=== PATIENT | female | born 1960 | race Caucasian/White ===

== ENCOUNTER 2019-02-01 15:57 | Emergency (ER) | payer MEDICAID ==
[~2019-02-01] VITALS: Ht 177.8 cm; Wt 79.4 kg
[~2019-02-01 15:57] MED LIST: ALDACTONE25 MG PO; CARVEDILOL3.125 MG PO; CELEBREX 200 M200 M1 PO; CIPROFLOXACIN500 M1 PO; COLACE100 MG PO; CRESTOR20 MG PO; CYMBALTA30 MG PO; DIAZEPAM 10 MG10 M1 PO; DILAUDID1 MG/1 ML; DOXYCYCLINE 10100 MG PO; EFFIENT10 MG PO; FAMOTIDINE20 MG PO; FUROSEMIDE 40 M40 M1 PO; IBUPROFEN 200200 M1 PO; IBUPROFEN 800800 M1 PO; K-DUR 20 MEQ T20 MEQ PO; LEXAPRO 10 MG T10 M1 PO; LIORESAL 10 MG10 MG PO; NAPROSYN500 MG PO; NEURONTIN600 MG PO; NEURONTIN800 MG PO; NICOTINE TRANSD21 M1 TD; NORCO 5-325 TA1 EACH PO; OXYCODONE HCL30 MG PO; OXYCONTIN10 M1 PO; OXYCONTIN20 M1 PO; PENICILLIN V P500 MG PO; PERCOCET PO; PHENERGAN 25 MG25 MG PO; PREDNISONE 20 M20 M1 PO; PRINIVIL20 MG PO; PROVENTIL HFA6.7 G1 INH; XANAX 0.5 MG0.5 MG PO; ZANAFLEX4 MG PO; ZOFRAN ODT4 MG PO
[2019-02-01 17:09] LABS: ABSOLUTE EOSINOPHILS 0.2 thou/uL (0.0-0.7); ABSOLUTE MONOCYTES 0.4 thou/uL (0.0-1.2); ABSOLUTE NEUTROPHILS 1.9 thou/uL (1.6-8.1); BASOPHILS 0.7 %; EOSINOPHILS 3.9 %; HEMOGLOBIN 15.4 gm/dL (12.0-15.0); LYMPHOCYTES 44.4 %; MCH 34.3 pg (26.0-34.0); MCHC 33.4 g/dL (28.0-37.0); MCV 102.6 fL (80.0-100.0); MPV 10.1 fl. (7.2-11.1); NUCLEATED RBCS 0 /100WBC; PLATELET COUNT* 119 thou/uL (150-400); RBC 4.49 mil/uL (4.20-5.00); RDW-CV 15.3 % (10.5-14.5); WBC 4.4 thou/uL (4.0-11.0)
[2019-02-01 17:27] LABS: ALBUMIN 3.2 g/dL (3.4-5.0); ALKALINE PHOSPHATASE 81 U/L (46-116); ANION GAP 7 mmol/L (7-16); BUN 15 mg/dL (7-18); CALCIUM 8.8 mg/dL (8.5-10.1); CHLORIDE 103 mmol/L (98-107); CO2 32 mmol/L (21-32); CREATININE 0.9 mg/dL (0.6-1.3); GLUCOSE 105 mg/dL (70-99); POTASSIUM 3.7 mmol/L (3.5-5.1); SGOT 25 U/L (15-37); SGPT 17 U/L (30-65); SODIUM 142 mmol/L (136-145); TOTAL BILIRUBIN 0.3 mg/dL (<0.1-1.0); TOTAL PROTEIN 6.6 g/dL (6.4-8.2); TROPONIN-I LEVEL <0.06 ng/mL (<0.06)
[2019-02-01 19:21] LABS: URINE BILIRUBIN NEGATIVE (Negative); URINE BLOOD NEGATIVE (Negative); URINE CLARITY CLEAR; URINE COLOR YELLOW; URINE GLUCOSE-RANDOM NEGATIVE (Negative); URINE KETONES NEGATIVE (Negative); URINE LEUKOCYTES-REFLEX NEGATIVE (Negative); URINE NITRITE-REFLEX NEGATIVE (Negative); URINE PROTEIN NEGATIVE (Negative); URINE UROBILINOGEN 0.2 E.U./dl (0.2-1.0)
[2019-02-01] MEDS ORDERED: NORCO 5-325 TA1 EACH PO (20:21)
[2019-02-01] MEDS ORDERED: NABUMETONE 750750 M1 PO (20:21)
[2019-02-01 21:03] VITALS: BP 201/93
--- NOTE | 2019-02-02 10:47 | EKG ---
[place] [address] ELECTROCARDIOGRAM REPORT Name: FABIAN POTTER Room: [facility]#: [id number] Admission: 02/01/19 Attend Phys: Discharge: 02/01/19 Date of : 58 Report #: [id number] THIS REPORT FOR: //name// [facility] ED Test Date: 2019-02-01 Test Time: 16:11:03 Pat Name: FABIAN SMITH Department: Room: Gender: F Preservationist: : 1960 Requested By: María Burnett Order Number: [id number] MD: Manoj Harirs Measurements Intervals [place] Rate: 64 P: -28 WI: 187 QRS: 32 QRSD: 88 T: 57 QT: 444 QTc: 458 Interpretive Statements Sinus rhythm Baseline wander in lead(s) V4 Compared to ECG 01/25/2017 15:53:58 No significant changes Electronically Signed On 02-02-2019 10:47:04 CDT by Manoj Harris [email or web address] <ELECTRONICALLY SIGNED> By: Manoj Harris MD, [facility] 02/02/19 1047 161 161 Manoj Harris MD, FACC /EPI
== END 2019-02-01 21:00 | disposition home or self-care (01) ==
LOC: M.ERS 15:57
PROVIDERS: Nurse Practitioner Family
DX: S16.1XXA Strain of muscle, fascia and tendon at neck level, initial encounter (principal); S29.012A Strain of muscle and tendon of back wall of thorax, initial encounter; S09.8XXA Other specified injuries of head, initial encounter; J98.2 Interstitial emphysema; G89.29 Other chronic pain; M54.5 Low back pain; L40.9 Psoriasis, unspecified; I10 Essential (primary) hypertension; F41.9 Anxiety disorder, unspecified; F31.9 Bipolar disorder, unspecified; Z95.5 Presence of coronary angioplasty implant and graft; Z90.710 Acquired absence of both cervix and uterus; W18.39XA Other fall on same level, initial encounter; Y93.89 Activity, other specified; Y92.89 Other specified places as the place of occurrence of the external cause; Y99.8 Other external cause status

== ENCOUNTER 2019-03-12 02:10 | Inpatient (IN) | payer MEDICAID ==
[~2019-03-12] VITALS: Ht 172.7 cm; Wt 97.1 kg
[2019-03-12] VITALS (13 sets, daily range): BP systolic 115–159; BP diastolic 53–73
[~2019-03-12 02:10] MED LIST changes: +NABUMETONE 750750 M1 PO
[2019-03-12 03:01] LABS: BE 11.3 mmol/L (-2 to +3); PO2 69.9 mmHg (75.0-100.0)
[2019-03-12 03:03] LABS: PCO2 51.5 mmHg (35.0-45.0)
[2019-03-12 04:06] LABS: ABSOLUTE LYMPHOCYTES 1.9 thou/uL (0.8-5.3); ABSOLUTE MONOCYTES 0.7 thou/uL (0.0-1.2); ABSOLUTE NEUTROPHILS 6.4 thou/uL (1.6-8.1); BASOPHILS 0.4 %; EOSINOPHILS 0.1 %; HEMATOCRIT 57.6 % (37.0-47.0); HEMOGLOBIN 19.4 gm/dL (12.0-15.0); LYMPHOCYTES 21.1 %; MCH 34.2 pg (26.0-34.0); MCHC 33.6 g/dL (28.0-37.0); MCV 101.8 fL (80.0-100.0); MONOCYTES 8.1 %; MPV 10.7 fl. (7.2-11.1); NUCLEATED RBCS 0 /100WBC; PLATELET COUNT* 142 thou/uL (150-400); POLYS 70.3 %; RBC 5.66 mil/uL (4.20-5.00); WBC 9.1 thou/uL (4.0-11.0)
[2019-03-12 04:09] LABS: CALCIUM 9.6 mg/dL (8.5-10.1); CREATININE 2.1 mg/dL (0.6-1.3)
[2019-03-12 04:13] LABS: URINE BLOOD TRACE (Negative); URINE CLARITY CLEAR; URINE COLOR YELLOW; URINE GLUCOSE-RANDOM NEGATIVE (Negative); URINE KETONES TRACE (Negative); URINE LEUKOCYTES-REFLEX NEGATIVE (Negative); URINE NITRITE-REFLEX NEGATIVE (Negative); URINE PROTEIN TRACE (Negative); URINE SPECIFIC GRAVITY 1.015 (1.005-1.030); URINE UROBILINOGEN 0.2 E.U./dl (0.2-1.0)
[2019-03-12 04:14] LABS: ICTOTEST (BILI CONFIRMATORY) Negative (Negative); URINE BILIRUBIN 1+ (Negative)
[2019-03-12 04:18] LABS: ALBUMIN 3.9 g/dL (3.4-5.0); MAGNESIUM 1.6 mg/dL (1.8-2.4); TOTAL PROTEIN 8.3 g/dL (6.4-8.2); TROPONIN-I LEVEL 0.14 ng/mL (<0.06)
[2019-03-12 04:21] LABS: AMP/METHAMP Negative (Negative); BARBITURATES Negative (Negative); BENZODIAZEPINES POSITIVE (Negative); COCAINE Negative (Negative); METHADONE Negative (Negative); OPIATES POSITIVE (Negative); PCP Negative (Negative); THC Negative (Negative)
[2019-03-12 04:22] LABS: PROTIME 65.2 Seconds (9.20-11.50)
[2019-03-12 04:23] LABS: POTASSIUM 2.4 mmol/L (3.5-5.1)
[2019-03-12 04:31] LABS: INR 6.5
[2019-03-12 05:55] LABS: APTT 30.3 Seconds (25.0-31.3); PROTIME 13.7 Seconds (9.20-11.50)
[2019-03-12 05:56] LABS: INR 1.3
[2019-03-12 06:27] LABS: CREATININE 2.1 mg/dL (0.6-1.3)
--- NOTE | 2019-03-12 10:50 | EKG ---
[place] [address] ELECTROCARDIOGRAM REPORT Name: FABIAN POTTER Room: [address] ADM IN .R.#: [id number] Admission: 03/12/19 Attend Phys: Luis Capps, Discharge: Date of : 58 Report #: [id number] THIS REPORT FOR: //name// [facility] ED Test Date: 2019-03-12 Test Time: 02:18:26 Pat Name: FABIAN SMITH Department: Room: [facility] Gender: F Meter Technician: BROOKS : 1960 Requested By: Nancy Kim Order Number: [id number] MD: Manoj Harris Measurements Intervals [place] Rate: 79 P: 0 IL: 60 QRS: 69 QRSD: 98 T: 50 QT: 541 QTc: 621 Interpretive Statements Sinus rhythm Short IL interval Minimal ST depression, lateral leads Prolonged QT interval Baseline wander in lead(s) V4 Compared to ECG 02/01/2019 16:11:03 Short IL interval now present ST (T wave) deviation now present Prolonged QT interval now present Electronically Signed On 03-12-2019 10:50:07 CDT by Manoj Harris [email or web address] <ELECTRONICALLY SIGNED> By: Manoj Harris MD, [facility] 03/12/19 1050 7 7 Manoj Harris MD, [facility] /EPI
[2019-03-12 11:21] LABS: BE 3.6 mmol/L (-2 to +3); PCO2 38.9 mmHg (35.0-45.0); PO2 87.3 mmHg (75.0-100.0); pH 7.466 (7.340-7.450)
[2019-03-12 11:22] LABS: MAGNESIUM 1.6 mg/dL (1.8-2.4)
--- NOTE | 2019-03-12 17:18 | 2DMMODE ---
[place] [address] 2 D/M-MODE ECHOCARDIOGRAM Name: FABIAN POTTER Room: [address] IN [facility]#: [id number] Admission: 03/12/19 Attend Phys: Luis Capellan Discharge: Date of : 58 Date of Service: 03/12/19 1718 Report #: [id number] THIS REPORT FOR: //name// APPROVED REPORT Study performed: 03/12/2019 15:05:50 EXAM: Comprehensive 2D, Doppler, and color-flow Echocardiogram Patient Location: In-Patient Room #: 002 Status: routine BSA: 2.05 HR: 54 bpm BP: 131/68 mmHg Rhythm: NSR Other Information Study Quality: Good Indications CAD Respiratory failure 2D Dimensions IVSd: 15.16 (7-11mm) LVOT Diam: 19.83 (18-24mm) LVDd: 39.64 mm PWd: 12.13 (7-11mm) Ascending Ao: 30.70 (22-36mm) LVDs: 22.72 (25-40mm) Aortic Root: 31.52 mm Volumes Left Atrial Volume (Systole) LA ESV Index: 17.90 mL/m2 Aortic Valve AoV Peak Tim.: 1.42 m/s AO Peak Gr.: 8.11 mmHg LVOT Max P.46 mmHg AO Mean Gr.: 5.19 mmHg LVOT Mean P.33 mmHg LVOT Max V: 1.54 m/s AO V2 VTI: 24.41 cm LVOT Mean V: 0.94 m/s SUZAN (VTI): 3.99 cm2 LVOT V1 VTI: 31.55 cm Mitral Valve E/A Ratio: 0.90 MV Decel. Time: 229.99 [place] [address] 2 D/M-MODE ECHOCARDIOGRAM Name: FABIAN POTTER Room: [address]#: [id number] Admission: 03/12/19 Attend Phys: Luis Capellan Discharge: Date of : 58 Date of Service: 03/12/19 1718 Report #: [id number] MV E Max Tim.: 0.61 m/s MV PHT: 66.70 ms MVA (PHT): 3.30 cm2 TDI E/Lateral E': 6.78 E/Medial E': 8.71 Medial E' Tim.: 0.07 m/s Lateral E' Tim.: 0.09 m/s Pulmonary Valve PV Peak Tim.: 0.92 m/s PV Peak Gr.: 3.42 mmHg Left Ventricle The left ventricle is normal size. There is normal LV segmental wall motion. Mild concentric left ventricular hypertrophy. Left ventricular systolic function is normal. The left ventricular ejection fraction is within the normal range. LVEF is 65%. The left ventricular diastolic function is normal. Right Ventricle The right ventricle is normal size. The right ventricular systolic function is normal. Atria The left atrium size is normal. The right atrium size is normal. Aortic Valve The aortic valve is normal in structure. No aortic regurgitation is present. There is no aortic valvular stenosis. Mitral Valve The mitral valve is normal in structure. There is no mitral valve regurgitation noted. No evidence of mitral valve stenosis. Tricuspid Valve The tricuspid valve is normal in structure. Trace tricuspid regurgitation. Pulmonic Valve Pulmonic valve is not well visualized. There is no pulmonic valvular regurgitation. Great Vessels The aortic root is normal in size. IVC is normal in size and collapses >50% [place] [address] 2 D/M-MODE ECHOCARDIOGRAM Name: JESSY SMITHFABIAN Lara Room: [address]#: [id number] Admission: 03/12/19 Attend Phys: Luis Capellan Discharge: Date of : 58 Date of Service: 03/12/19 1718 Report #: [id number] Pericardium There is no pericardial effusion. <Conclusion> Mild concentric left ventricular hypertrophy. LVEF is 65%. <ELECTRONICALLY SIGNED> By: Manoj Harris MD, [facility] 03/12/191717 17 17 Manoj Harris MD, [facility] /INF
[2019-03-12 23:05] LABS: GLYCOHEMOGLOBIN (HGB A1C) 5.8 % (4.8-5.6)
[2019-03-13] VITALS (24 sets, daily range): BP systolic 112–244; BP diastolic 55–121
[2019-03-13 04:28] LABS: HEMATOCRIT 49.8 % (37.0-47.0); MCH 33.4 pg (26.0-34.0); MCHC 32.9 g/dL (28.0-37.0); MCV 101.5 fL (80.0-100.0); NUCLEATED RBCS 0 /100WBC; PLATELET COUNT* 139 thou/uL (150-400); RDW-CV 15.6 % (10.5-14.5); WBC 14.4 thou/uL (4.0-11.0)
[2019-03-13 04:56] LABS: HEMOGLOBIN 16.4 gm/dL (12.0-15.0)
[2019-03-13 05:02] LABS: ALBUMIN 3.1 g/dL (3.4-5.0); CALCIUM 9.1 mg/dL (8.5-10.1); CREATININE 1.2 mg/dL (0.6-1.3); TOTAL BILIRUBIN 0.9 mg/dL (<0.1-1.0); TOTAL PROTEIN 6.7 g/dL (6.4-8.2)
[2019-03-13 06:16] LABS: BE 7.5 mmol/L (-2 to +3); PCO2 37.1 mmHg (35.0-45.0); pH 7.532 (7.340-7.450)
[2019-03-13 06:18] LABS: PO2 128.9 mmHg (75.0-100.0)
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
[2019-03-13 07:59] LABS: ABSOLUTE LYMPHOCYTES 1.3 thou/uL (0.8-5.3); ABSOLUTE MONOCYTES 0.4 thou/uL (0.0-1.2); ABSOLUTE NEUTROPHILS 12.7 thou/uL (1.6-8.1); ATYPICAL LYMPHS 1 %; PLATELET ESTIMATE DECREASED
[2019-03-13 08:00] LABS: LARGE PLATELETS OCCASIONAL; MACROCYTES 1+
[2019-03-13 10:39] LABS: BE 7.4 mmol/L (-2 to +3); PO2 72.8 mmHg (75.0-100.0); pH 7.547 (7.340-7.450)
[2019-03-14] VITALS (76 sets, daily range): BP systolic 103–235; BP diastolic 59–121
[2019-03-14 05:30] LABS: ABSOLUTE LYMPHOCYTES 0.7 thou/uL (0.8-5.3); ABSOLUTE MONOCYTES 1.5 thou/uL (0.0-1.2); ABSOLUTE NEUTROPHILS 16.5 thou/uL (1.6-8.1); BASOPHILS 0.2 %; HEMATOCRIT 53.6 % (37.0-47.0); HEMOGLOBIN 17.7 gm/dL (12.0-15.0); LYMPHOCYTES 3.7 %; MCH 33.6 pg (26.0-34.0); MCHC 33.1 g/dL (28.0-37.0); MCV 101.8 fL (80.0-100.0); MONOCYTES 8.1 %; MPV 11.2 fl. (7.2-11.1); NUCLEATED RBCS 0 /100WBC; PLATELET COUNT* 145 thou/uL (150-400); RBC 5.26 mil/uL (4.20-5.00); RDW-CV 15.5 % (10.5-14.5); WBC 18.7 thou/uL (4.0-11.0)
[2019-03-14 05:58] LABS: CALCIUM 9.5 mg/dL (8.5-10.1); CREATININE 0.9 mg/dL (0.6-1.3)
[2019-03-14 06:05] LABS: POTASSIUM 3.4 mmol/L (3.5-5.1)
[2019-03-15] VITALS (12 sets, daily range): BP systolic 168–206; BP diastolic 74–95
[2019-03-15 14:32] LABS: ABSOLUTE LYMPHOCYTES 0.7 thou/uL (0.8-5.3); ABSOLUTE MONOCYTES 0.6 thou/uL (0.0-1.2); BASOPHILS 0.1 %; EOSINOPHILS 0.1 %; HEMATOCRIT 52.5 % (37.0-47.0); HEMOGLOBIN 17.2 gm/dL (12.0-15.0); LYMPHOCYTES 4.8 %; MCH 34.1 pg (26.0-34.0); MCHC 32.8 g/dL (28.0-37.0); MCV 103.9 fL (80.0-100.0); MPV 10.8 fl. (7.2-11.1); NUCLEATED RBCS 0 /100WBC; PLATELET COUNT* 118 thou/uL (150-400); RBC 5.06 mil/uL (4.20-5.00); RDW-CV 15.3 % (10.5-14.5); WBC 14.2 thou/uL (4.0-11.0)
[2019-03-15 15:24] LABS: CALCIUM 8.9 mg/dL (8.5-10.1); CREATININE 0.8 mg/dL (0.6-1.3); MAGNESIUM 1.6 mg/dL (1.8-2.4); PHOSPHORUS* 2.3 mg/dL (2.5-4.9)
[2019-03-16 04:00] VITALS: BP 117/65
[2019-03-16 08:00] VITALS: BP 180/74
[2019-03-16 11:30] VITALS: BP 175/76
[2019-03-16 16:01] VITALS: BP 160/80
[2019-03-16 21:35] VITALS: BP 185/81
[2019-03-17 08:30] VITALS: BP 167/71
[2019-03-17 10:30] VITALS: BP 158/67
[2019-03-17] MEDS ORDERED: PREDNISONE 10 M10 MG PO (12:56)
[2019-03-17] MEDS ORDERED: MAXZIDE-25 MG1 EACH PO (12:57)
[2019-03-17] MEDS ORDERED: LISINOPRIL40 MG PO (12:58)
[2019-03-17] MEDS ORDERED: HYDROCODON-ACE1 EAC7 PO (13:03)
[2019-03-17 13:06] VITALS: BP 167/71
[2019-03-17 13:54] VITALS: BP 167/71
== END 2019-03-17 21:30 | disposition home or self-care (01) | DRG 208 ==
LOC: M.ERS 02:10 → M.TBA-ER 04:09 → M.ICU 04:51 → M.TBA-ER 04:51 → M.ICU 04:55 → M.TBA-ER 04:55 → M.ICU 05:59 → M.ORTHSURG 03-15 15:21
PROVIDERS: Internal Medicine; Internal Medicine Pulmonary Disease; Personal Emergency Response Attendant; ADMIT Family Medicine
PROC: 06HM33Z Insertion of Infusion Device into Right Femoral Vein, Percutaneous Approach (ICD-10-PCS; principal; 2019-03-12)
PROC: 5A1935Z Respiratory Ventilation, Less than 24 Consecutive Hours (ICD-10-PCS; 2019-03-12)
PROC: 0BH17EZ Insertion of Endotracheal Airway into Trachea, Via Natural or Artificial Opening (ICD-10-PCS; 2019-03-12)
DX: J96.02 Acute respiratory failure with hypercapnia (principal); E11.10 Type 2 diabetes mellitus with ketoacidosis without coma; E87.2 Acidosis; N17.9 Acute kidney failure, unspecified; G89.29 Other chronic pain; L40.9 Psoriasis, unspecified; I10 Essential (primary) hypertension; F31.9 Bipolar disorder, unspecified; F41.9 Anxiety disorder, unspecified; F17.210 Nicotine dependence, cigarettes, uncomplicated; F11.90 Opioid use, unspecified, uncomplicated; I25.10 Atherosclerotic heart disease of native coronary artery without angina pectoris; E87.6 Hypokalemia; E78.5 Hyperlipidemia, unspecified; E66.01 Morbid (severe) obesity due to excess calories; J44.9 Chronic obstructive pulmonary disease, unspecified; Z91.81 History of falling; Z91.041 Radiographic dye allergy status; Z91.040 Latex allergy status; Z79.899 Other long term (current) drug therapy; Z90.710 Acquired absence of both cervix and uterus; Z98.42 Cataract extraction status, left eye; Z98.41 Cataract extraction status, right eye; I25.2 Old myocardial infarction; Z95.5 Presence of coronary angioplasty implant and graft; Z82.49 Family history of ischemic heart disease and other diseases of the circulatory system; Z83.3 Family history of diabetes mellitus; Z84.1 Family history of disorders of kidney and ureter; Z68.32 Body mass index [BMI] 32.0-32.9, adult

== ENCOUNTER 2019-03-22 21:11 | Inpatient (IN) | payer MEDICAID ==
[~2019-03-22] VITALS: Ht 177.8 cm; Wt 93.9 kg
[~2019-03-22 21:11] MED LIST changes: +HYDROCODON-ACE1 EAC7 PO; +LISINOPRIL40 MG PO; +MAXZIDE-25 MG1 EACH PO; +PREDNISONE 10 M10 MG PO
[2019-03-22 21:12] VITALS: BP 103/54
[2019-03-22 21:56] LABS: HEMATOCRIT 46.1 % (37.0-47.0); HEMOGLOBIN 15.6 gm/dL (12.0-15.0); MCH 34.3 pg (26.0-34.0); MCHC 33.8 g/dL (28.0-37.0); MCV 101.6 fL (80.0-100.0); MPV 11.5 fl. (7.2-11.1); NUCLEATED RBCS 0 /100WBC; PLATELET COUNT* 102 thou/uL (150-400); RBC 4.54 mil/uL (4.20-5.00); RDW-CV 14.6 % (10.5-14.5); WBC 15.5 thou/uL (4.0-11.0)
[2019-03-22 22:06] LABS: ANION GAP 7 mmol/L (7-16); BUN 42 mg/dL (7-18); CALCIUM 9.2 mg/dL (8.5-10.1); CHLORIDE 92 mmol/L (98-107); CO2 33 mmol/L (21-32); CREATININE 2.3 mg/dL (0.6-1.3); GLUCOSE 119 mg/dL (70-99); POTASSIUM 3.4 mmol/L (3.5-5.1); SODIUM 132 mmol/L (136-145)
[2019-03-22 22:18] LABS: ABSOLUTE LYMPHOCYTES 1.6 thou/uL (0.8-5.3); ABSOLUTE MONOCYTES 0.6 thou/uL (0.0-1.2); ABSOLUTE NEUTROPHILS 13.3 thou/uL (1.6-8.1)
[2019-03-22 22:19] LABS: ALBUMIN 2.8 g/dL (3.4-5.0); ALKALINE PHOSPHATASE 85 U/L (46-116); SGOT 43 U/L (15-37); SGPT 37 U/L (30-65); TOTAL BILIRUBIN 0.9 mg/dL (<0.1-1.0); TOTAL PROTEIN 6.8 g/dL (6.4-8.2); TROPONIN-I LEVEL <0.06 ng/mL (<0.06)
[2019-03-22 22:20] LABS: LARGE PLATELETS OCCASIONAL; PLATELET ESTIMATE DECREASED
[2019-03-23 00:20] LABS: URINE BLOOD NEGATIVE (Negative); URINE CLARITY CLEAR; URINE COLOR YELLOW; URINE GLUCOSE-RANDOM NEGATIVE (Negative); URINE KETONES NEGATIVE (Negative); URINE LEUKOCYTES-REFLEX NEGATIVE (Negative); URINE NITRITE-REFLEX NEGATIVE (Negative); URINE PROTEIN NEGATIVE (Negative); URINE SPECIFIC GRAVITY 1.025 (1.005-1.030); URINE UROBILINOGEN 0.2 E.U./dl (0.2-1.0)
[2019-03-23 00:22] LABS: ICTOTEST (BILI CONFIRMATORY) Negative (Negative); URINE BILIRUBIN 1+ (Negative)
[2019-03-23 00:27] LABS: AMP/METHAMP Negative (Negative); BARBITURATES Negative (Negative); BENZODIAZEPINES Negative (Negative); COCAINE Negative (Negative); METHADONE Negative (Negative); OPIATES POSITIVE (Negative); PCP Negative (Negative); THC Negative (Negative)
[2019-03-23 04:47] VITALS: BP 135/62
--- NOTE | 2019-03-23 04:52 | NUR ---
PT IS RESTING QUIETLY. NO ACUTE DISTRESS NOTED AT THIS TIME. MONTIORS INTACT WITH ALARMS SET. NUGENT INTACT AND PATENT DRAINING DK NATALIO URINE TO BEDSIDE BAG. NO ACUTE CHANGES. WILL CONTINUE TO MONITOR
--- NOTE | 2019-03-23 08:47 | NUR ---
PT GIVEN A BREAKFAST TRAY.
--- NOTE | 2019-03-23 09:30 | NUR ---
PT HAS REDDNESS TO HER BUTTOCKS. WHEN ASKED, PT STATED THAT "IT IS PSORIASIS AND I HAVE HAD IT FOR 40YEARS".
[2019-03-23 10:00] VITALS: BP 155/59
[2019-03-23 14:49] VITALS: BP 133/49
--- NOTE | 2019-03-23 15:41 | EKG ---
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: [place] : 1960 Requested By: Shi Call Order Number: [id number] MD: Tevin Bowie Measurements Intervals [place] Rate: 66 P: 49 MT: 167 QRS: 67 QRSD: 113 T: 55 QT: 463 QTc: 486 Interpretive Statements Sinus rhythm Nonspecific T-wave flattening Compared to ECG 03/12/2019 02:18:26 Short MT interval no longer present ST (T wave) deviation no longer present Electronically Signed On 03-23-2019 15:41:06 CDT by Tevin Bowie [email or web address] <ELECTRONICALLY SIGNED> By: Tevin Bowie MD, [facility]ACC 03/23/19 1541 2148 2148 Tevin Bowie MD, [facility] /EPI
[2019-03-23 19:01] VITALS: BP 131/51
[2019-03-23 21:49] VITALS: BP 117/55
[2019-03-23 22:00] VITALS: BP 120/62
[2019-03-24] VITALS: BP 115/59
[2019-03-24 04:00] VITALS: BP 123/62
[2019-03-24 06:14] LABS: ABSOLUTE LYMPHOCYTES 1.7 thou/uL (0.8-5.3); ABSOLUTE MONOCYTES 0.8 thou/uL (0.0-1.2); ABSOLUTE NEUTROPHILS 8.2 thou/uL (1.6-8.1); BASOPHILS 0.3 %; EOSINOPHILS 0.2 %; HEMATOCRIT 39.5 % (37.0-47.0); LYMPHOCYTES 15.7 %; MCH 33.8 pg (26.0-34.0); MCHC 32.9 g/dL (28.0-37.0); MCV 102.8 fL (80.0-100.0); MONOCYTES 7.8 %; MPV 11.2 fl. (7.2-11.1); NUCLEATED RBCS 0 /100WBC; PLATELET COUNT* 112 thou/uL (150-400); RBC 3.85 mil/uL (4.20-5.00); RDW-CV 14.7 % (10.5-14.5); WBC 10.8 thou/uL (4.0-11.0)
[2019-03-24 06:25] LABS: CALCIUM 8.4 mg/dL (8.5-10.1); POTASSIUM 3.1 mmol/L (3.5-5.1)
[2019-03-24 06:26] LABS: CREATININE 0.8 mg/dL (0.6-1.3)
--- NOTE | 2019-03-24 07:44 | NUR ---
PT RECIEVED FROM ED. ALERT AND ORIENTED X4. CALL LIGHT WITHIN REACH AND BED IN LOW PSOITION. DENIES PAIN AND SOB. SAT MAINTAINED IN 02. HOURLY ROUNDING DONE FOR PT SAFETY.
[2019-03-24 08:00] VITALS: BP 126/60
--- NOTE | 2019-03-24 10:30 | NUR ---
ASSESSED PT AROUND 0800. PT STATED SHE WAS HAVING ACHING LOWER BACK PAIN RATED 8/10. NURSE PRECEPTOR ANGI Kingsley ADMINISTERED BACLOFEN FOR PAIN. HEART SOUNDS NORMAL, NSR. LUNGS CLEAR TO AUSCULTATION BILATERALLY. SKIN COOL, MOIST, AND INTACT. LAST BM T-5. AYUSH - JUANITO CARPIO RN.
[2019-03-24 11:55] VITALS: BP 124/56
--- NOTE | 2019-03-24 14:44 | NUR ---
MET WITH PT TO DISCUSS HOME SITUATION/DC PLANNING. PT LIVES WITH MOTHER AND NEPHEW. SHE STATES SHE IS NORMALLY FAIRLY INDEPENDENT AND ACTIVE. HAD RECENT HOSPITAL STAY AND WAS ON A VENTILATOR. WENT HOME WITH WALKER ON 03/17. PT STATES SHE WAS ABLE TO GET HER MEDS FILLED BUT NEVER FELT BACK TO HER BASELINE, WEAK AND TIRED. TRIED TO EAT AND DRINK BUT NOW READMITTED WITH ARF. TALKED WITH PT ABOUT OPTIONS OF HH WITH RN ONLY SHE HAS MEDICAID OR INPT REHAB IF QUALIFIED. EXPLAINED REHAB AND PT IS INTERESTED IF NEEDED. HAS REHAB CONSULT. DPOA COMPLETED AND ON CHART, COPIES TO PT. WILL FOLLOW
[2019-03-24 16:00] VITALS: BP 148/68
--- NOTE | 2019-03-24 16:19 | NUR ---
POTASSIUM 3.1 ON MORNING LAB ASSESSMENT, REPLACEMENT THERAPY ORDERED, NEW LABS DRAWM 1300, NEW K LEVEL 3.5, DID NOT GIVE ANOTHER DOSE OF K. PT COMPLAINS OF ACHING LOWER BACK PAIN. ADMINISTERED BACLOFEN AT APPROX 0900. REASSESSED PAIN AT 1430 PT STATES SHE IS COMFORTABLE AND DOES NOT NEED PAIN MEDS AT THIS TIME. EMPTIED NUGENT BAG OF 750ML. SUPPLIED A FAN PER PT REQUEST FOR COMFORT AND RELAXATION MEASURES. PT RESTING COMFORTABLY-WCTM
[2019-03-24 20:10] VITALS: BP 120/85
[2019-03-25] VITALS: BP 168/76
[2019-03-25 04:00] VITALS: BP 163/79
--- NOTE | 2019-03-25 07:40 | NUR ---
PT CARE ASSUMED AT 1930. SAT MAINTAINED IN 02. ALERT AND ORIENTED X4. CALL LIGHT WITHIN REACH AND BED IN LOW POSITION. C/O PAIN, MEDICATION GIVEN PER EMAR. HOURLY ROUNDINIG DONE FOR PT SAFETY.
[2019-03-25 08:00] VITALS: BP 190/88
--- NOTE | 2019-03-25 09:06 | NUR ---
ASSUMED CARE OF PT THIS AM AROUND 0715- OPTICAL GLASS SAWYER IN PLACE ORDERED, TRACING SR- UPON ASSESSMENT PT NOTED TO BE RESTING BED, WATCHING TV- PT A&O X4- NUGENT IN PLACE D/D CLEAR NATALIO URINE; CONTINENT OF BM- Q 2HOUR TURNS IN PLACE INDICATED- DIMINISHED LUNG SOUNDS NOTED, PRODUCTIVE COUGH REPORTED WITH THIN CLEAR SPUTUM- VSS, O2 SAT 92% ON RA- ABD SOFT/ROUND/NON-TENDER, BS X 4 QUADS- LAST BM REPORTED X9 DAYS AGO- PT REPORTS TO BE PASSING GAS-PRN BISACODYL GIVEN THIS AM- LEFT SQ TRIPLE LUMEN PICC NOTED INTACT, IVF INFUSSING PRESCIBED-FAIR PO INTAKE NOTED THIS AM WITH BREAKFAST- PRN BACLOFEN THIS AM PER PT REQUEST- CALL LIGHT AND PERSONAL BELONGINGS WITH IN REACH- HOURLY ROUNDS IN PLACE R/T SAFETY/NEEDS- ALL NEEDS MET AT THIS TIME-WCTM
--- NOTE | 2019-03-25 16:07 | NUR ---
PT TRANSFERRED TO ROOM 111 AROUND 1522. REPORT RECIEVED FROM PREVIOUS RN. PT ORIENTED TO ROOM .NO OTHER CONCERNS AT THIS TIME. CLWR. WCTM.
[2019-03-25 19:40] VITALS: BP 191/102
[2019-03-26 00:30] VITALS: BP 185/86
[2019-03-26 04:00] VITALS: BP 172/79
[2019-03-26 05:13] LABS: CALCIUM 8.5 mg/dL (8.5-10.1); CREATININE 0.6 mg/dL (0.6-1.3); POTASSIUM 3.1 mmol/L (3.5-5.1)
--- NOTE | 2019-03-26 06:42 | NUR ---
PT ALERT AND ORIENTED. BP WAS HIGH DURING THE NIGHT. ONETIME DOSE OR NORVASC ORDERED AND GIVEN, WITH NO SIGNIFICANT IMPROVEMENT. HYDRALAZINE GIVEN, NOTING IMPROVEMENT ON BP. MEDS GIVEN PER EMAR. IV AT LT SUBCLAVIAN WITH NS @ 40ML/HR. PT SLEPT MOST OF SHIFT. PT DENIES N/P. CALL LIGHT WITHIN REACH. HOURLY ROUNDINGS MADE. WILL CONTINUE TO MONITOR.
[2019-03-26 08:00] VITALS: BP 153/73
--- NOTE | 2019-03-26 15:00 | NUR ---
[facility]/REHAB LIASON IN TO SPEAK WITH PT. HAS ACCEPTED HER TO INPT.REHAB IF INSURANCE WILL AUTH. PT.AWARE SHE CANNOT DISCHARGE FROM REHAB IN 3 DAYS. SHE WILL AT LEAST NEED TO BE THERE FOR A WEEK. [facility] WILL REQUEST INS. AUTH. IF OBTAINED PT.CAN COME UP TO REHAB TODAY.
[2019-03-26 16:04] VITALS: BP 142/72
[2019-03-26 16:53] VITALS: BP 142/72
--- NOTE | 2019-03-26 18:34 | NUR ---
PT TRANSFERING TO REHAB ON 3RD FLOOR AT END OF SHIFT. NUGENT OUT. MIDLINE PATENT. PT HAD BM TODAY. WALKED HALLS WITH THERAPY. DENIED PAIN MEDS FOR MINIMUM PAIN. DENIED NAUSEA. VITALS STABLE. FALL PRECAUTIONS IN PLACE. CALL LIGHT WITHIN REACH. WILL CONTINUE TO MONITOR.
[2019-03-27 11:07] LABS: URINE CODEINE Negative (Cutoff=300); URINE HYDROCODONE Negative (Cutoff=300); URINE HYDROMORPHONE Positive (()); URINE HYDROMORPHONE CONFIRM >1500 ng/mL (Cutoff=300); URINE MORPHINE Negative (Cutoff=300); URINE OPIATES Positive ng/mL (Cutoff=300)
== END 2019-03-26 18:50 | DRG 683 ==
LOC: M.ERS 21:11 → M.TBA-ER 03-23 00:27 → M.2W 03-23 00:27 → M.ORTHSURG 03-25 15:22
PROVIDERS: Internal Medicine; Physician Assistant; ADMIT Internal Medicine
PROC: 02HV33Z Insertion of Infusion Device into Superior Vena Cava, Percutaneous Approach (ICD-10-PCS; principal; 2019-03-23)
DX: N17.9 Acute kidney failure, unspecified (principal); F11.20 Opioid dependence, uncomplicated; G89.29 Other chronic pain; M54.5 Low back pain; I10 Essential (primary) hypertension; F32.9 Major depressive disorder, single episode, unspecified; F41.9 Anxiety disorder, unspecified; F17.210 Nicotine dependence, cigarettes, uncomplicated; R33.9 Retention of urine, unspecified; K59.00 Constipation, unspecified; E78.5 Hyperlipidemia, unspecified; Z90.710 Acquired absence of both cervix and uterus; Z98.42 Cataract extraction status, left eye; Z98.41 Cataract extraction status, right eye; I25.2 Old myocardial infarction; Z95.5 Presence of coronary angioplasty implant and graft; Z91.041 Radiographic dye allergy status

== ENCOUNTER 2019-03-26 18:34 | Inpatient (IN) | payer MEDICAID ==
[~2019-03-26] VITALS: Ht 177.8 cm; Wt 93.4 kg
[2019-03-26 21:14] VITALS: BP 133/72
--- NOTE | 2019-03-26 23:51 | NUR ---
ASSUMED CARE AT 1930. PATIENT ADMITTED FROM [facility] TO ROOM 324 PER W/C. UP WITH SBA, GAIT BELT, WALKER. VOIDED PER TOILET, BLADDER SCAN DONE, 21 ML RESIDUAL. ASSESSMENT COMPLETE. HAS HX OF PSORIASIS THAT IS LONG STANDING AND "CLEARS UP WITH THE PREDNISONE." SOME NOTED ON POST THIGHS AND BUTTOCKS, NO OPEN AREAS NOTED. SKIN UNDER BILAT BREASTS HAS YEAST APPEARANCE. STATES SHE HAS A DILAUDID PUMP IMBEDED IN LT ABD. TURNS SELF. TAKES PILLS WHOLE WITH WATER. ASSESSMENT COMPLETED. NO C/O PAIN. HAS CENTRAL LINE TO LT CHEST WALL. DRESSING INTACT. HOURLY ROUNDS CONTINUE. BED ALARM ON. CALL LITE IN REACH.
--- NOTE | 2019-03-27 05:02 | NUR ---
SLEPT AFTER ABOUT 2245. TURNS SELF. UP TO VOID PER TOILET, GAIT BELT, WALKER. DOES OWN CARES AND CLOTHING ADJUSTMENTS. NO C/O PAIN. HOURLY ROUNDS CONTINUE. BED ALARM ON. CALL LITE IN REACH.
[2019-03-27 06:29] LABS: HEMATOCRIT 41.9 % (37.0-47.0); HEMOGLOBIN 13.9 gm/dL (12.0-15.0); MCH 33.8 pg (26.0-34.0); MCHC 33.2 g/dL (28.0-37.0); MCV 101.8 fL (80.0-100.0); MPV 10.7 fl. (7.2-11.1); RBC 4.12 mil/uL (4.20-5.00); WBC 8.1 thou/uL (4.0-11.0)
[2019-03-27 06:36] LABS: CALCIUM 9.4 mg/dL (8.5-10.1); CREATININE 0.7 mg/dL (0.6-1.3); POTASSIUM 3.4 mmol/L (3.5-5.1)
[2019-03-27 07:30] VITALS: BP 156/80
--- NOTE | 2019-03-27 16:29 | NUR ---
PATIENT WORKING WITH THERAPY THIS MORNING INTO AFTERNOON. UP WITH SBA UTILIZING GAIT BELT AND WALKER. NO COMPLAINTS OF PAIN. CENTRAL LINE DC'D THIS AFTERNOON PER ORDERS. POTASSIUM REPLACED PER PROTOCOL FOR LEVEL OF 3.4, REDRAW PENDING. NYSTATIN POWDER ORDERED AND PLACED UNDER BREASTS FOR YEAST ORDERED.
[2019-03-27 20:00] VITALS: BP 105/56
--- NOTE | 2019-03-28 05:29 | NUR ---
ASSUMED PT CARE AT 1930. PT ALERT AND ORIENTED X4, POLITE AND COOPERATIVE WITH CARES. PT DENIES PAIN. UP TO BATHROOM TO VOID WITH SBA, GAIT BELT AND WALKER. AREA UNDER BOTH BREASTS WASHED AND DRIED THEN NYSTATIN POWDER APPLIED. THERE IS MORE REDNESS ON LEFT SIDE. PT SLEPT WELL OVERNIGHT. USES CALL LIGHT APPROPRIATELY. CALL LIGHT AND FREQUENTLY USED ITEMS WITHIN REACH. HOURLY ROUNDING IN PROGRESS, WILL CONTINUE TO MONITOR.
[2019-03-28 07:30] VITALS: BP 99/60
--- NOTE | 2019-03-28 16:22 | NUR ---
PATIENT UP AROUND ROOM WITH SBA AND TO DINING NAIDU FOR MEALS. UP WOTH SBA AND USE OF WALKER AND GAIT BELT. NO COMPLAINTS OF PAIN. PATIENT STATED HER FAMILY WOULD BE HERE THIS EVENING. REFUSED TO CHANGE CLOTHS OR GROOM THIS AM WITH ASSISTANCE OF NURSE, PATIENT STATED HER MOTHER WAS BRINGING HER FRESH CLOTHES THIS EVENING.
[2019-03-28 20:00] VITALS: BP 109/64
--- NOTE | 2019-03-29 05:15 | NUR ---
ASSUMED PT CARE AT 1930. PT ALERT AND ORIENTED X4, POLITE AND COOPERATIVE WITH CARES. PT VISITING WITH HER MOTHER AT SHIFT CHANGE. PT DENIES PAIN. UP TO BATHROOM TO VOID WITH SBA, GAIT BELT AND WALKER. AREA UNDER BOTH BREASTS WASHED AND DRIED THEN NYSTATIN POWEDER APPLIED, REDNESS IMPROVED. PT SLEPT WELL OVERNIGHT. USES CALL LIGHT APPROPRIATELY. CALL LIGHT AND FREQUENTLY USED ITEMS WITHIN REACH. HOURLY ROUNDING IN PROGRESS, WILL CONTINUE TO MONITOR.
[2019-03-29 08:28] VITALS: BP 97/60
--- NOTE | 2019-03-29 12:44 | NUR ---
Nutrition: Pt admitted to rehab with weakness. Has constipation. H/o HTN, CAD, tobacco use. Eating regular diet well. Per RN, pt is borderline DM. BG 110-156, albumin 2.8, prealb 9.7. Depleted protein stores. Per RN, pt orders doubles of portions. Will follow protein intake and labs. Wt 203#. Low to mild nutrition risk at this time. Will follow weekly.
--- NOTE | 2019-03-29 14:32 | NUR ---
SW met with pt to complete initial assessment, introduce self, and SW role on inpt rehab unit. Pt alert, oriented. Pt lives at home with her mother and her nephew. Pt has a RW. Pt mother is DPOA. Pt has Medicaid so no other therapy benefits at dc. 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 Pt concerned for her steps to get into her home being a barrier to dc, pt said she is looking into support agency installing railings as needed this week. Pt hopeful to be ready to dc by Friday; pt said she wants to get back home to her mother. SW to continue to follow to assist with safe dc planning.
--- NOTE | 2019-03-29 15:37 | NUR ---
ASSUMMED CARE OF PT AT 0730, PT ALERT AND ORIENTED, PT TRANSFERS WITH SBA, GB WALKER, AMBULATES TO BATHROOM TO VOID, AMBULATED TO DININGROOM FOR LUNCH, TAKING FOOD AND FLUIDS WELL, DENIES PAIN, PT HAS SLIGHT IRRITATION UNDER BREASTS, NYSTATIN APPLIED PER ORDER, PARTICIPATED IN ALL THERAPIES, HOURLY ROUNDING COMPLETED, ASSESSMENT COMPLETE, WILL CONTINUE TO MONITOR.
[2019-03-29 20:12] VITALS: BP 102/60
--- NOTE | 2019-03-30 05:21 | NUR ---
ASSUMED PT CARE AT 1930, PT ALERT AND ORIENTED X4, POLITE AND COOPERATIVE WITH CARES. PT IN BED AT SHIFT CHANGE. UP WITH SBA, GAIT BELT AND WALKER TO BATHROOM TO VOID SEVERAL TIMES OVERNIGHT. NO STOOL THIS SHIFT. DENIES PAIN. NYSTATIN APPLIED PER ORDERS TO REDNESS UNDER BOTH BREASTS. PT IS CONVINCED THAT SHE IS GOING HOME ON FRIDAY. USES CALL LIGHT APPROPRIATELY. CALL LIGHT AND FREQUENTLY USED ITEMS WITHIN REACH. HOURLY ROUNDING IN PROGRESS, WILL CONTINUE TO MONITOR.
[2019-03-30 08:00] VITALS: BP 115/61
--- NOTE | 2019-03-30 15:45 | NUR ---
ASSUMMED CARE OF PT AT 0730, PT ALERT AND ORIENTED, TRANSFERS WITH ASSIST OF 1, GB WALKER, AMBULATED TO DININGROOM FOR LUNCH, VOIDS PER TOILET, LARGE BM THIS SHIFT, PT STATED SHE HAD BEEN TAKING LEXAPRO AT HOME, ORDER OBTAINED TO RESTART, PT TAKING FOOD AND FLUIDS WELL, PT HOPING TO BE DISCHARGED THIS WEEK, EDUCATED PT ON TEAM MEETING TOMORROW, DENIES NEED FOR FOR ADDITIONAL PAIN MEDICATION, PT HAS PAIN PUMP FOR HER CHRONIC BACK PAIN, SLIGHT PINK AREA UNDER BREAST, NYSTATIN APPLIED, PARTICIPATED IN ALL THERAPY, HOURLY ROUNDING COMPLETED, ASSESSMENT COMPLETE, WILL CONTINUE TO MONITOR.
[2019-03-30 19:00] VITALS: BP 107/59
--- NOTE | 2019-03-30 19:50 | NUR ---
AWAKENED FOR HS REASSESSMENT AND MEDICATION PASS. DENIES DISCOMFORT. TOOK MEDICATIONS WHOLE WITH WATER. AMBULATED TO THE BATHROOM WITH SBA, GAITBELT, WALKER. HAD A MODERATE BM. DID OWN HYGIENE AND CLOTHING ADJUSTMENTS.
[2019-03-31 04:15] LABS: HEMATOCRIT 42.4 % (37.0-47.0); HEMOGLOBIN 13.8 gm/dL (12.0-15.0); MCH 33.5 pg (26.0-34.0); MCHC 32.4 g/dL (28.0-37.0); MCV 103.3 fL (80.0-100.0); MPV 10.4 fl. (7.2-11.1); RBC 4.11 mil/uL (4.20-5.00); RDW-CV 14.1 % (10.5-14.5); WBC 9.5 thou/uL (4.0-11.0)
[2019-03-31 04:26] LABS: CALCIUM 9.4 mg/dL (8.5-10.1); CREATININE 0.8 mg/dL (0.6-1.3); MAGNESIUM 1.8 mg/dL (1.8-2.4); POTASSIUM 4.2 mmol/L (3.5-5.1)
--- NOTE | 2019-03-31 06:05 | NUR ---
RESTED ON/OFF. NO COMPLAINTS VOICED. HOURLY ROUNDING IN PROGRESS.
[2019-03-31 08:00] VITALS: BP 105/66
[2019-03-31 08:59] VITALS: BP 105/66
--- NOTE | 2019-03-31 15:43 | NUR ---
AM ASSESSMENT AND VITAL SIGNS COMPLETED DOCUMENTED. PT HAS BEEN PLEASANT AND COOPERATIVE, PARTICIPATED IN ALL THERAPIES. PT REQUESTED THE DOCUSATE SODIUM BE DC'D AND IT WAS CHANGED TO PRN. FALL PRECAUTIONS AND HOURLY ROUNDING CONTINUE.
--- NOTE | 2019-03-31 15:44 | NUR ---
SHYLA and Dr Rodrigues met with pt to review team conference summary and plan for pt to be able to dc on Friday; pt was hopeful for Friday but pt was still agreeable to Friday dc. Pt to work with therapy more on managing stairs and strengthening. SW to continue to follow to assist with safe dc plan.
[2019-03-31 19:51] VITALS: BP 155/70
--- NOTE | 2019-04-01 04:27 | NUR ---
RESTED WELL THROUGHOUT HOURLY ROUNDS NO CONCERNS VOICED UP TO BATHROOM X1 TOLERATED WELL , GENERAL WEAKNESS NOTED, NO CHANGES IN PT ASSESSMENT , WILL CONITUE WITH CURRENT PLAN OF CARE.
[2019-04-01 08:00] VITALS: BP 108/60
--- NOTE | 2019-04-01 13:19 | NUR ---
DC plan changed now for pt to be able to dc home with family tomorrow. Pt has a RW and does not have any other dc needs.
--- NOTE | 2019-04-01 18:00 | NUR ---
PT CONTINUES TO MAKE PROGRESS AND IS PLANNING TO GO HOME TOMMORROW. FALL PRECAUTIONS AND HOURLY ROUNDING CONTINUE.
--- NOTE | 2019-04-01 19:45 | NUR ---
RESTING QUIELTY IN BED WATCHING TV. IN GOOD SPIRITS. DENIES DISCOMFORT. TOOK MEDICATIONS WHOLE WITH WATER. SLIGHT REDNESS UNDER BREASTS. NYSATIN POWDER APPLIED PER ORDER.
[2019-04-01 20:09] VITALS: BP 166/52
[2019-04-02 05:09] LABS: HEMATOCRIT 44.9 % (37.0-47.0); HEMOGLOBIN 14.2 gm/dL (12.0-15.0); MCH 32.8 pg (26.0-34.0); MCHC 31.6 g/dL (28.0-37.0); MCV 103.7 fL (80.0-100.0); MPV 10.3 fl. (7.2-11.1); RBC 4.33 mil/uL (4.20-5.00); RDW-CV 14.5 % (10.5-14.5); WBC 9.4 thou/uL (4.0-11.0)
[2019-04-02 05:20] LABS: CALCIUM 9.4 mg/dL (8.5-10.1); CREATININE 0.7 mg/dL (0.6-1.3); POTASSIUM 4.5 mmol/L (3.5-5.1)
--- NOTE | 2019-04-02 05:29 | NUR ---
RESTED QUIETLY. UP X ONE DURING THE NIGHT TO THE BATHROOM TO VOID. NO COMPLAINTS VOICED. HOURLY ROUNDING IN PROGRESS. PATIENT TO GO HOME TODAY.
[2019-04-02 08:01] VITALS: BP 119/74
[2019-04-02] MEDS ORDERED: LEXAPRO20 MG PO (12:53)
[2019-04-02 12:55] VITALS: BP 119/74
[2019-04-02 13:11] VITALS: BP 119/74
--- NOTE | 2019-04-02 13:18 | NUR ---
Pt to dc home with family today. No dc needs expressed. No HH follow up nurse needed, pt has Medicaid which does not have benefit for HH therapies. Pt can do home exercise program if provided by therapies and OP follow up.
--- NOTE | 2019-04-02 14:31 | NUR ---
PATIENT DISCHARGE TO HOME IN STABLE CONDITION. REVIEW OF MEDICATIONS AND THE NEED FOR FOLLOW UP. SHE VERBALIZED UNDERSTANDING. TRANSFER TO CAR WITHOUT INCIDENT.
== END 2019-04-02 14:33 | disposition home or self-care (01) | DRG 683 ==
LOC: M.REH 18:34
PROVIDERS: Internal Medicine; ADMIT Physical Medicine & Rehabilitation
DX: N17.9 Acute kidney failure, unspecified (principal); G90.50 Complex regional pain syndrome I, unspecified; K59.00 Constipation, unspecified; I25.10 Atherosclerotic heart disease of native coronary artery without angina pectoris; I10 Essential (primary) hypertension; E78.5 Hyperlipidemia, unspecified; F17.200 Nicotine dependence, unspecified, uncomplicated; R53.81 Other malaise; M54.5 Low back pain; R29.6 Repeated falls; L40.9 Psoriasis, unspecified; R33.9 Retention of urine, unspecified; F41.9 Anxiety disorder, unspecified; F31.9 Bipolar disorder, unspecified; Z90.710 Acquired absence of both cervix and uterus; Z91.81 History of falling; I25.2 Old myocardial infarction; Z95.5 Presence of coronary angioplasty implant and graft; Z88.6 Allergy status to analgesic agent; Z91.048 Other nonmedicinal substance allergy status

== ENCOUNTER 2019-04-09 17:27 | Inpatient (IN) | payer MEDICAID ==
[2019-04-09] VITALS (13 sets, daily range): BP systolic 108–144; BP diastolic 55–69
[~2019-04-09] VITALS: Ht 177.8 cm; Wt 96.1 kg
--- NOTE | ~2019-04-09 | EEG ---
[address] [address] EEG STUDY REPORT Name: FABIAN POTTER Room: [address] IN [facility]#: [id number] Admission: 04/09/19 Attend Phys: Luis Capps, Discharge: Date of : 58 Report #: [id number] THIS REPORT FOR: //name// CC: Bandar Capps DATE OF SERVICE: 04/11/2019 DICTATED BY: Dr. Varela. This patient is being evaluated for altered mental status and seizure. EEG was done by placing the electrode by standard 10-20 system of electrode placement. Both referential and sequential montages were used for recording. Background activity in this patient's EEG is about 8 Hz and 30 microvolts. There is symmetrical activity. The patient went to sleep and that was associated with bilateral slowing and vertex sharp waves. Throughout the record, no active epileptiform activity was noticed. IMPRESSION: This patient's EEG is intermixed with theta range slowing on both sides. That is a nonspecific abnormality, which can occur with encephalopathy, effect of psychotropic medication, dementia, etc. Clinical correlation is recommended. By: [id number] Springer MD /nt
[~2019-04-09 17:27] MED LIST changes: +LEXAPRO20 MG PO
[2019-04-09 17:44] LABS: ABSOLUTE LYMPHOCYTES 1.7 thou/uL (0.8-5.3); ABSOLUTE MONOCYTES 0.7 thou/uL (0.0-1.2); ABSOLUTE NEUTROPHILS 8.6 thou/uL (1.6-8.1); BASOPHILS 0.2 %; EOSINOPHILS 0.3 %; HEMATOCRIT 42.5 % (37.0-47.0); HEMOGLOBIN 13.8 gm/dL (12.0-15.0); LYMPHOCYTES 15.4 %; MCH 33.3 pg (26.0-34.0); MCHC 32.5 g/dL (28.0-37.0); MCV 102.6 fL (80.0-100.0); MONOCYTES 6.7 %; MPV 9.7 fl. (7.2-11.1); NUCLEATED RBCS 0 /100WBC; PLATELET COUNT* 201 thou/uL (150-400); POLYS 77.4 %; RBC 4.14 mil/uL (4.20-5.00); RDW-CV 14.7 % (10.5-14.5); WBC 11.1 thou/uL (4.0-11.0)
[2019-04-09 17:48] LABS: PROTIME 10.1 Seconds (9.20-11.50)
[2019-04-09 17:49] LABS: ANION GAP 8 mmol/L (7-16); BUN 41 mg/dL (7-18); CALCIUM 8.8 mg/dL (8.5-10.1); CHLORIDE 103 mmol/L (98-107); CO2 31 mmol/L (21-32); CREATININE 2.8 mg/dL (0.6-1.3); GLUCOSE 109 mg/dL (70-99); POTASSIUM 5.1 mmol/L (3.5-5.1); SODIUM 142 mmol/L (136-145)
[2019-04-09 17:56] LABS: SALICYLATE < 2.8 mg/dL (2.8-20.0)
[2019-04-09 17:57] LABS: ACETAMINOPHEN < 2 ug/mL (10-30)
[2019-04-09 17:59] LABS: ALBUMIN 2.7 g/dL (3.4-5.0); ALKALINE PHOSPHATASE 78 U/L (46-116); LIPASE 118 U/L (73-393); NT-PRO BRAIN NAT PEPTIDE 157 pg/mL (<300); SGOT 19 U/L (15-37); SGPT 37 U/L (30-65); TOTAL BILIRUBIN 0.5 mg/dL (<0.1-1.0); TROPONIN-I LEVEL <0.06 ng/mL (<0.06)
[2019-04-09 18:05] LABS: BE 1.9 mmol/L (-2 to +3); PO2 94.9 mmHg (75.0-100.0)
[2019-04-09 18:08] LABS: PCO2 53.2 mmHg (35.0-45.0)
[2019-04-09 18:18] LABS: URINE BLOOD NEGATIVE (Negative); URINE CLARITY CLEAR; URINE COLOR YELLOW; URINE GLUCOSE-RANDOM NEGATIVE (Negative); URINE KETONES TRACE (Negative); URINE LEUKOCYTES-REFLEX NEGATIVE (Negative); URINE NITRITE-REFLEX NEGATIVE (Negative); URINE PROTEIN 1+ (Negative); URINE SPECIFIC GRAVITY 1.025 (1.005-1.030)
[2019-04-09 18:19] LABS: ICTOTEST (BILI CONFIRMATORY) Negative (Negative); URINE BILIRUBIN 1+ (Negative)
[2019-04-09 18:27] LABS: AMP/METHAMP Negative (Negative); BARBITURATES Negative (Negative); BENZODIAZEPINES Negative (Negative); COCAINE Negative (Negative); METHADONE Negative (Negative); OPIATES POSITIVE (Negative); PCP Negative (Negative); THC Negative (Negative)
[2019-04-10] VITALS (39 sets, daily range): BP systolic 85–143; BP diastolic 35–73
[2019-04-10 06:51] LABS: ABSOLUTE EOSINOPHILS 0.1 thou/uL (0.0-0.7); ABSOLUTE LYMPHOCYTES 3.7 thou/uL (0.8-5.3); ABSOLUTE MONOCYTES 0.8 thou/uL (0.0-1.2); ABSOLUTE NEUTROPHILS 6.7 thou/uL (1.6-8.1); BASOPHILS 0.2 %; EOSINOPHILS 0.8 %; HEMATOCRIT 41.4 % (37.0-47.0); HEMOGLOBIN 13.3 gm/dL (12.0-15.0); LYMPHOCYTES 32.9 %; MCH 33.5 pg (26.0-34.0); MCV 104.6 fL (80.0-100.0); MONOCYTES 6.9 %; MPV 9.9 fl. (7.2-11.1); NUCLEATED RBCS 0 /100WBC; PLATELET COUNT* 186 thou/uL (150-400); POLYS 59.2 %; RBC 3.96 mil/uL (4.20-5.00); RDW-CV 15.3 % (10.5-14.5); WBC 11.3 thou/uL (4.0-11.0)
[2019-04-10 07:04] LABS: ALBUMIN 2.7 g/dL (3.4-5.0); CALCIUM 8.5 mg/dL (8.5-10.1); CREATININE 1.5 mg/dL (0.6-1.3); POTASSIUM 4.9 mmol/L (3.5-5.1); TOTAL BILIRUBIN 0.4 mg/dL (<0.1-1.0); TOTAL PROTEIN 5.3 g/dL (6.4-8.2)
[2019-04-10 08:51] LABS: BE 0.4 mmol/L (-2 to +3); PO2 111.2 mmHg (75.0-100.0)
[2019-04-10 08:53] LABS: pH 7.299 (7.340-7.450)
[2019-04-10 08:54] LABS: PCO2 58.8 mmHg (35.0-45.0)
[2019-04-10 11:58] LABS: BE 0.9 mmol/L (-2 to +3); PO2 82.7 mmHg (75.0-100.0); pH 7.317 (7.340-7.450)
[2019-04-10 12:01] LABS: PCO2 56.6 mmHg (35.0-45.0)
[2019-04-11] VITALS (15 sets, daily range): BP systolic 118–185; BP diastolic 50–89
[2019-04-11 04:30] LABS: HEMATOCRIT 42.2 % (37.0-47.0); HEMOGLOBIN 13.5 gm/dL (12.0-15.0); MCH 33.6 pg (26.0-34.0); MCV 104.8 fL (80.0-100.0); MPV 9.6 fl. (7.2-11.1); RBC 4.03 mil/uL (4.20-5.00); WBC 7.2 thou/uL (4.0-11.0)
[2019-04-11 04:52] LABS: ALBUMIN 2.6 g/dL (3.4-5.0); CREATININE 0.8 mg/dL (0.6-1.3); MAGNESIUM 1.6 mg/dL (1.8-2.4); POTASSIUM 4.8 mmol/L (3.5-5.1); TOTAL BILIRUBIN 0.7 mg/dL (<0.1-1.0); TOTAL PROTEIN 5.8 g/dL (6.4-8.2)
[2019-04-11 05:28] LABS: BE 0.7 mmol/L (-2 to +3); PO2 110.9 mmHg (75.0-100.0); pH 7.341 (7.340-7.450)
[2019-04-11 05:29] LABS: PCO2 51.6 mmHg (35.0-45.0)
[2019-04-12] VITALS: BP 101/49
[2019-04-12 04:00] VITALS: BP 123/63
[2019-04-12 04:26] LABS: ABSOLUTE EOSINOPHILS 0.1 thou/uL (0.0-0.7); ABSOLUTE LYMPHOCYTES 2.8 thou/uL (0.8-5.3); ABSOLUTE MONOCYTES 0.6 thou/uL (0.0-1.2); BASOPHILS 0.3 %; EOSINOPHILS 0.7 %; HEMATOCRIT 38.6 % (37.0-47.0); HEMOGLOBIN 12.7 gm/dL (12.0-15.0); LYMPHOCYTES 33.5 %; MCH 33.7 pg (26.0-34.0); MCHC 32.8 g/dL (28.0-37.0); MCV 102.8 fL (80.0-100.0); MONOCYTES 7.1 %; MPV 9.7 fl. (7.2-11.1); NUCLEATED RBCS 0 /100WBC; PLATELET COUNT* 141 thou/uL (150-400); POLYS 58.4 %; RBC 3.76 mil/uL (4.20-5.00); RDW-CV 14.4 % (10.5-14.5); WBC 8.5 thou/uL (4.0-11.0)
[2019-04-12 04:43] LABS: ALBUMIN 2.5 g/dL (3.4-5.0); CALCIUM 8.8 mg/dL (8.5-10.1); CREATININE 0.8 mg/dL (0.6-1.3); MAGNESIUM 1.6 mg/dL (1.8-2.4); TOTAL BILIRUBIN 0.5 mg/dL (<0.1-1.0); TOTAL PROTEIN 5.5 g/dL (6.4-8.2)
[2019-04-12 04:51] LABS: POTASSIUM 3.8 mmol/L (3.5-5.1)
[2019-04-12 05:38] LABS: BE 5.9 mmol/L (-2 to +3); PO2 106.6 mmHg (75.0-100.0); pH 7.419 (7.340-7.450)
[2019-04-12 07:50] VITALS: BP 126/54
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
[2019-04-12 11:37] VITALS: BP 119/87
--- NOTE | 2019-04-12 12:29 | CON ---
[address] [address] CONSULTATION Name: FABIAN POTTER Room: [address] IN ..#: [id number] Admission: 04/09/19 Attend Phys: Luis Capps, Discharge: Date of : 58 Report #: [id number] THIS REPORT FOR: //name// CC: Bandar Capps DATE OF SERVICE: 04/11/2019 HISTORY OF PRESENT ILLNESS: This is a 58-year-old female patient who is unable to provide any history. History is from the records and talking to the nurses. This patient is admitted with altered mental status. No family member is available at the moment to give the history. Records indicate that this is the third admission for this patient for altered mental status. At one time, she also had some hypertension and she was admitted on and it was found that her BUN and creatinine was high at that time. It has become better. She has improved some. Her last records indicate that even in the past, her BUN and creatinine has fluctuated. Her drug screen has been positive for opiates, although she is not on opiates as I understand. There also has been records which indicate that she was hypertensive at one time and her blood pressure medications were readjusted and is not clear whether she followed that advice or not. REVIEW OF SYSTEMS: Only from the record. She has been admitted with multiple episodes of altered mental status. The etiology of that is not clear. She does not believe she had any falls. She is not complaining of any pain either. I will try to reach the patient's family to get some more history in that regard. The record indicates that she was at one time admitted with DIC. She has a history of brain contusion, chronic back pain, interstitial pulmonary fibrosis, multiple falls, opiate dependence, ovarian mass, respiratory failure, anxiety, atypical chest pain, cervical strain, according to the records. The patient is not able to provide any history in that regard. PAST MEDICAL HISTORY: Positive for multiple episodes of altered mental status. FAMILY HISTORY: According to her is negative for strokes. SOCIAL HISTORY: She said she smokes but does not drink alcohol. PHYSICAL EXAMINATION: The patient's examination is pretty limited. She is alert. She can tell me what month it is. She cannot tell me the date. She took a long time, but ultimately said which hospital she is in. Her cooperation with the exam was pretty poor. The best I can tell, cranial nerve examinations appeared unremarkable. She moves all 4 extremities. She was able to appreciate the position sense. There is no meningeal sign in this patient. She could not cooperate with the fundus examination. She does not appear to be in respiratory distress. Cardiac examinations appear unremarkable. [place] [address] CONSULTATION Name: FABIAN POTTER Room: [address] IN [facility]#: [id number] Admission: 04/09/19 Attend Phys: Luis Capps, Discharge: Date of : 58 Report #: [id number] has no edema, cyanosis or jaundice. Blood pressure is 152/67, respirations are 10, pulse is 60 and temperature is 98.7. She did have a CT scan of the head on admission and that was reviewed and that was unremarkable. LABORATORY DATA: Indicates that she had high BUN and creatinine when she came in, but presently it has returned back to the baseline. IMPRESSION: Poorly defined history. She had episodes of altered mental status for which no etiology has been determined, most likely ____ some systemic problems including the medications effect, especially opioids. She denies the use of alcohol. Her MCV is high and her vitamin B12 the last time it was checked was normal. I will repeat it and if it is still high, that also need to be explained. We will check an EEG and may consider an MRI, but this patient had pain issues and I would like to exclude the contraindication before we do that. I will talk to the patient's family, try to get some more history and follow up the patient with you tomorrow. Thank you very much for this referral. <ELECTRONICALLY SIGNED> By: Ras Springer MD 04/12/19 1229 1119 [id number] Springer MD /nt
--- NOTE | 2019-04-12 14:38 | EKG ---
[place] [address] ELECTROCARDIOGRAM REPORT Name: FABIAN POTTER Room: [address] ADM [place] .R.#: [id number] Admission: 04/09/19 Attend Phys: Luis Capps, Discharge: Date of : 58 Report #: [id number] THIS REPORT FOR: //name// [facility] ED Test Date: 2019-04-09 Test Time: 17:33:02 Pat Name: FABIAN SMITH Department: Room: [facility] Gender: F Radiological Technician: deborah : 1960 Requested By: Eric Grossman Order Number: [id number] MD: Tevin Bowie Measurements Intervals Veyo Rate: 62 P: 65 OK: 192 QRS: 53 QRSD: 82 T: 52 QT: 419 QTc: 426 Interpretive Statements Sinus rhythm Minimal ST elevation, inferior leads, consider early repolarization Compared to ECG 03/22/2019 21:48:16 ST (T wave) deviation now present T-wave abnormality no longer present Electronically Signed On 04-12-2019 14:38:12 CDT by Tevin Bowie [email or web address] <ELECTRONICALLY SIGNED> By: Tevin Bowie MD, FACC 04/12/19 1438 1733 1733 Tevin Bowie MD, [facility] /EPI
[2019-04-12 20:00] VITALS: BP 121/60
[2019-04-12 23:55] VITALS: BP 143/59
[2019-04-13] VITALS (7 sets, daily range): BP systolic 111–141; BP diastolic 51–77
[2019-04-14] VITALS: BP 173/68
[2019-04-14 03:50] VITALS: BP 131/73
[2019-04-14 05:40] LABS: CALCIUM 9.3 mg/dL (8.5-10.1); CREATININE 0.7 mg/dL (0.6-1.3); POTASSIUM 4.1 mmol/L (3.5-5.1)
[2019-04-14 08:00] VITALS: BP 129/66
[2019-04-14 11:20] VITALS: BP 98/45
[2019-04-14 11:22] VITALS: BP 98/45
[2019-04-14] MEDS ORDERED: IPRAT-ALBUT 0.5-3 ML INH (12:08)
== END 2019-04-14 13:40 | disposition home or self-care (01) | DRG 682 ==
LOC: M.ERS 17:27 → M.TBA-ER 18:36 → M.2W 18:36 → M.ICU 19:49 → M.2W 04-11 16:51
PROVIDERS: Emergency Medicine; Internal Medicine; Internal Medicine Critical Care Medicine; ADMIT Family Medicine
PROC: 5A09357 Assistance with Respiratory Ventilation, Less than 24 Consecutive Hours, Continuous Positive Airway Pressure (ICD-10-PCS; principal; 2019-04-10)
PROC: 5A09357 Assistance with Respiratory Ventilation, Less than 24 Consecutive Hours, Continuous Positive Airway Pressure (ICD-10-PCS; 2019-04-11)
PROC: 5A09357 Assistance with Respiratory Ventilation, Less than 24 Consecutive Hours, Continuous Positive Airway Pressure (ICD-10-PCS; 2019-04-13)
DX: N17.9 Acute kidney failure, unspecified (principal); G92 Toxic encephalopathy; J96.21 Acute and chronic respiratory failure with hypoxia; J96.22 Acute and chronic respiratory failure with hypercapnia; R65.10 Systemic inflammatory response syndrome (SIRS) of non-infectious origin without acute organ dysfunction; G90.50 Complex regional pain syndrome I, unspecified; I10 Essential (primary) hypertension; F41.9 Anxiety disorder, unspecified; F11.29 Opioid dependence with unspecified opioid-induced disorder; G89.4 Chronic pain syndrome; I25.10 Atherosclerotic heart disease of native coronary artery without angina pectoris; E78.5 Hyperlipidemia, unspecified; K59.00 Constipation, unspecified; F31.9 Bipolar disorder, unspecified; J44.9 Chronic obstructive pulmonary disease, unspecified; G47.33 Obstructive sleep apnea (adult) (pediatric); I95.9 Hypotension, unspecified; M54.5 Low back pain; Z90.710 Acquired absence of both cervix and uterus; Z98.42 Cataract extraction status, left eye; Z98.41 Cataract extraction status, right eye; I25.2 Old myocardial infarction; Z95.5 Presence of coronary angioplasty implant and graft; Z91.041 Radiographic dye allergy status

== ENCOUNTER 2020-10-20 20:57 | Emergency (ER) | payer MEDICAID ==
[~2020-10-20] VITALS: Ht 177.8 cm; Wt 81.7 kg
[~2020-10-20 20:57] MED LIST changes: +IPRAT-ALBUT 0.5-3 ML INH
[2020-10-20] MEDS ORDERED: HYDROCODON-ACE1 EAC7 PO (21:41)
[2020-10-20] MEDS ORDERED: CENTANY30 GM TOP (21:41)
[2020-10-20] MEDS ORDERED: DOXYCYCLINE 10100 MG PO (21:41)
[2020-10-20 22:01] VITALS: BP 145/98
== END 2020-10-20 22:02 | disposition home or self-care (01) ==
LOC: M.ERS 20:57
DX: L03.115 Cellulitis of right lower limb (principal); L40.9 Psoriasis, unspecified; I10 Essential (primary) hypertension; F17.210 Nicotine dependence, cigarettes, uncomplicated; Z91.041 Radiographic dye allergy status; Z90.710 Acquired absence of both cervix and uterus